=== PATIENT | female | born 1990 ===

== ENCOUNTER 2017-04-01 10:00 | Emergency (ER) | payer OTHER ==
[2017-04-01 10:00] VITALS: BMI 27.1
[2017-04-01 10:16] VITALS: BP 109/71; PULSE 82; RESP 18; TEMP 98.9; O2SAT 98
--- NOTE | 2017-04-01 10:33 | C.PDOC ---
History Of Present Illness 27 y/o female presents to ED with complaints of L ankle injury yesterday after accidentally mis stepping off curb and twisted ankle inward. Patient is ambulatory but is worse today and reports swelling. Patient denies numbness, weakness or any other complaints at this time. L ANKLE INJURY YEST. PS ACCID MISSTEPPED OFF CURB, TWISTED ANKLE INWARD. AMBUL, WORSE TODAY. +SWELLING. NO OTHER ASSOC INJURY OR SX EXAM NAD EXT L ANKLE +SWELL W DIFF TEND L LAT MALL; NO DEFORM; NO FOOT TEND SKIN INTACT NEURO INTACT Time Seen by Provider: 04/01/17 10:30 Chief Complaint (Nursing): Lower Extremity Problem/Injury History Per: Patient History/Exam Limitations: no limitations Onset/Duration Of Symptoms: Days Current Symptoms Are (Timing): Still Present - Hip Description Of Injury: Fell Past Medical History Reviewed: Historical Data, Nursing Documentation, Vital Signs Vital Signs: Last Vital Signs Temp 98.9 F 04/01/17 10:11 Pulse 82 04/01/17 10:11 Resp 18 04/01/17 10:11 BP 109/71 04/01/17 10:11 Pulse Ox 98 04/01/17 10:35 Family History: States: No Known Family Hx - Social History Hx Tobacco Use: No Hx Alcohol Use: No Hx Substance Use: No - Immunization History Hx Tetanus Toxoid Vaccination: No Hx Influenza Vaccination: No Hx Pneumococcal Vaccination: No Review Of Systems Except As Marked, All Systems Reviewed And Found Negative. Constitutional: Negative for: Fever, Chills Respiratory: Negative for: Shortness of Breath Gastrointestinal: Negative for: Nausea, Vomiting, Diarrhea Musculoskeletal: Positive for: Foot Pain. Negative for: Neck Pain Neurological: Negative for: Weakness, Headache, Dizziness Physical Exam - Physical Exam Appears: Non-toxic, No Acute Distress Skin: Normal Color, Warm Head: Atraumatic, Normacephalic Eye(s): bilateral: Normal Inspection Oral Mucosa: Moist Neck: Normal ROM Cardiovascular: Rhythm Regular, No Murmur Respiratory: No Rales, No Rhonchi, No Wheezing Extremity: Tenderness (Diffuse tenderness left lateral malleolus), Capillary Refill (<2 seconds), No Deformity, Swelling (L ankle swelling) Neurological/Psych: Oriented x3, Normal Speech, Normal Cognition ED Course And Treatment O2 Sat by Pulse Oximetry: 98 (RA) Pulse Ox Interpretation: Normal - Other Rad L ANKLE X-Ray: Interpreted by Me (NEG) Disposition Counseled Patient/Family Regarding: Studies Performed, Diagnosis, Need For Followup - Disposition Referrals: YOUR,PMD [Other] Disposition: HOME/ ROUTINE Disposition Time: 10:35 Condition: IMPROVED Instructions: Ankle Sprain (ED) - Clinical Impression Clinical Impression: Ankle sprain - PA / CORE EXTRUDER / Resident Statement MD/DO has reviewed & agrees with the documentation as recorded. MD/DO has examined the patient and agrees with the treatment plan. - Scribe Statement The provider has reviewed the documentation as recorded by the Scribrufino Jiménez All medical record entries made by the Noel were at my direction and personally dictated by me. I have reviewed the chart and agree that the record accurately reflects my personal performance of the history, physical exam, medical decision making, and the department course for this patient. I have also personally directed, reviewed, and agree with the discharge instructions and disposition. Orthopedic Care Application Of:: Ankle Air Cast
--- NOTE | 2017-04-01 11:08 | RAD ---
PROCEDURE: Left Ankle Radiographs. HISTORY: TRAUMA COMPARISON: None available. FINDINGS: BONES: No acute displaced fracture. JOINTS: No dislocation. SOFT TISSUES: Soft tissue swelling greatest laterally. No evidence of radiopaque foreign body. OTHER FINDINGS: None. IMPRESSION: Soft tissue swelling, greatest laterally. No acute displaced fracture or dislocation identified. If symptoms persist or if there is clinical concern, x-ray follow-up in 7-10 days should be considered.
== END 2017-04-01 11:04 | disposition home or self-care (01) ==
LOC: C.ER 10:00
DX: S93.402A Sprain of unspecified ligament of left ankle, initial encounter (principal); X50.9XXA Other and unspecified overexertion or strenuous movements or postures, initial encounter